=== PATIENT | male | born 1940 | race Caucasian/White ===

== ENCOUNTER 2022-11-22 02:13 | Inpatient (IN) | payer OTHER, MEDICARE ==
[2022-11-22] MEDS ORDERED: Nitroglycerin 0.4 MG TAB 1 EACH ONE ×2 (02:24→02:44)
[2022-11-22 02:47] LABS: #Basophils 0.1 thou/uL (0.0-0.2); #Eosinphils 0.2 thou/uL (0.0-0.7); #Monocytes 0.8 thou/uL (0.11-0.59); #Neutrophils 5.6 thou/uL (1.40-6.50); %Basophils 0.5 % (0.0-1.0); %Lymphocytes 28.5 % (21.0-51.0); %Monocytes 8.5 % (0.0-10.0); %Neutrophils 60.2 % (42.0-75.0); Hematocrit 41.1 % (42.0-52.0); Mean Corpuscular HGB CONC 34.1 g/dL (32.0-36.0); Mean Corpuscular Hemoglobin 29.9 pg (27.0-31.0); Mean Corpuscular Volume 87.6 fl (78.0-98.0); Mean Platelet Volume 9.3 fL (7.4-10.4); Platelet Count 201 10x3/uL (130-400); RBC Distribution Width 13.5 % (11.5-14.5); Red Blood Cell (RBC) Count 4.69 mill/uL (4.70-6.10); White Blood Cell (WBC) Count 9.2 10x3/uL (4.8-10.8)
[2022-11-22] MEDS ORDERED: Amiodarone 150 MG/3 ML VIAL ONE (02:53)
[2022-11-22] MEDS ORDERED: Nitroglycerin 2% Ointment 1 INCH/1 GM Packet ONE (03:03)
[2022-11-22 03:12] LABS: ALT (SGPT) 16 U/L (8-55); AST (SGOT) 22 U/L (5-34); Albumin 4.6 g/dL (3.4-4.8); Alkaline Phosphatase 69 U/L (40-110); Anion Gap 10 mmol/L (10-20); BUN (Urea Nitrogen) 21 mg/dL (8.4-25.7); Bilirubin, Total 0.4 mg/dL (0.2-1.2); Calc. Creatinine Clearance 0 mL/min (70-130); Calcium 9.6 mg/dL (7.8-10.44); Carbon Dioxide 28 mmol/L (23-31); Chloride 105 mmol/L (98-107); Estimated GFR 49; Globulin 2.4 g/dL (2.4-3.5); Glucose 136 mg/dL (83-110); Lipase 37 U/L (8-78); Sodium 139 mmol/L (136-145)
[2022-11-22 03:21] LABS: Troponin I Less than 0.010 ng/mL (< 0.028)
[2022-11-22] MEDS ORDERED: Aspirin Chewable 81 MG TAB ONE (04:06)
[2022-11-22] MEDS ORDERED: fentaNYL 50 mcg/mL 1 mL Vial ONE (04:06)
[2022-11-22] MEDS ORDERED: Nitroglycerin 50 MG/250 ML BOT 0 ML ONE (04:30)
[2022-11-22] MEDS ORDERED: Nitroglycerin 50 MG/250 ML BOT 250 ML ONE (04:31)
[2022-11-22 05:30] LABS: Troponin I Less than 0.010 ng/mL (< 0.028)
[2022-11-22] MEDS ORDERED: Ondansetron PF 4 MG/2 ML Vial IVP PRN (05:32)
[2022-11-22] MEDS ORDERED: Nitroglycerin 50 MG/250 ML BOT 250 ML IVPB SCH (06:00)
[2022-11-22 06:04] LABS: Cardiac Risk 3.8 (Less than 4.5)
[2022-11-22 06:12] VITALS: BMI 26.3
[2022-11-22] MEDS ORDERED: Sodium Chloride 0.9% 1,000 ML IV SCH (06:15)
[2022-11-22] MEDS ORDERED: Electrolyte Replacement Protocol 1 EACH FS PRN (06:24)
[2022-11-22 06:52] LABS: Hemoglobin A1c 5.2 % (4.0-6.0)
[2022-11-22] MEDS ORDERED: Amiodarone 450 MG in Dextrose 5% in Water 250 ML IVPB SCH (07:00)
[2022-11-22] MEDS ORDERED: Simethicone Chewable 80 MG TAB PO SCH (07:00)
[2022-11-22] MEDS ORDERED: Lidocaine 2% Viscous Solution 10 ML, Aluminum & Magnesium Hydroxide 30 ML SSW SCH (07:00)
[2022-11-22 08:14] LABS: Magnesium 2.1 mg/dL (1.6-2.6)
[2022-11-22] MEDS: Pantoprazole 40 MG VIAL IVP SCH (08:21)
[2022-11-22 08:38] LABS: Troponin I Less than 0.010 ng/mL (< 0.028)
[2022-11-22] MEDS ORDERED: FLU VACC QS2023(65UP)/MF59C/PF 60 MCG/0.5 ML SYRINGE IM ONE (09:00)
[2022-11-22] MEDS: Acetaminophen 325 MG TAB PO PRN ×3 (09:42→22:25)
[2022-11-22] MEDS: PHOS-NAK 1 PKT PACK PO SCH ×2 (09:42→13:37)
[2022-11-22] MEDS ORDERED: Iopamidol 370 76% 100 ML VIAL ONE (11:04)
[2022-11-22] MEDS ORDERED: Communication Order-Pharmacy FS SCH (14:45)
[2022-11-22] MEDS ORDERED: Atorvastatin Calcium 40 MG TAB PO SCH (21:00)
[2022-11-23] MEDS ORDERED: Sodium Chloride 0.9% 1,000 ML IV SCH (06:00)
[2022-11-23 07:00] LABS: #Eosinphils 0.2 thou/uL (0.0-0.7); #Neutrophils 5.2 thou/uL (1.40-6.50); %Basophils 0.4 % (0.0-1.0); %Eosinophils 1.8 % (0.0-10.0); %Lymphocytes 25.4 % (21.0-51.0); %Monocytes 11.1 % (0.0-10.0); %Neutrophils 60.9 % (42.0-75.0); Hematocrit 39.5 % (42.0-52.0); Hemoglobin 13.2 g/dL (14.0-18.0); Mean Corpuscular HGB CONC 33.4 g/dL (32.0-36.0); Mean Corpuscular Hemoglobin 29.7 pg (27.0-31.0); Mean Corpuscular Volume 88.8 fl (78.0-98.0); Mean Platelet Volume 9.4 fL (7.4-10.4); Platelet Count 184 10x3/uL (130-400); RBC Distribution Width 13.4 % (11.5-14.5); Red Blood Cell (RBC) Count 4.45 mill/uL (4.70-6.10); White Blood Cell (WBC) Count 8.5 10x3/uL (4.8-10.8)
[2022-11-23] MEDS ORDERED: Heparin 10,000 UNITS/ 10 ML VIAL ONE ×2 (07:04→09:51)
[2022-11-23] MEDS ORDERED: Verapamil 5 MG/2 ML VIAL ONE ×2 (07:04→09:51)
[2022-11-23] MEDS ORDERED: Midazolam HCl 2 mg/2 ml Vial ONE (07:04)
[2022-11-23] MEDS ORDERED: fentaNYL 50 mcg/mL 1 mL Vial ONE (07:04)
[2022-11-23] MEDS ORDERED: Lidocaine 1% (PF) 30 ML VIAL ONE (07:05)
[2022-11-23] MEDS ORDERED: Nitroglycerin 50 MG/250 ML BOT 0 ML ONE (07:05)
[2022-11-23 07:26] LABS: Anion Gap 11 mmol/L (10-20); BUN (Urea Nitrogen) 17 mg/dL (8.4-25.7); Calc. Creatinine Clearance 56 mL/min (70-130); Calcium 8.8 mg/dL (7.8-10.44); Carbon Dioxide 26 mmol/L (23-31); Chloride 106 mmol/L (98-107); Estimated GFR 53; Glucose 86 mg/dL (83-110); Potassium 4.2 mmol/L (3.5-5.1); Sodium 139 mmol/L (136-145)
[2022-11-23] MEDS ORDERED: Aspirin 81 mg Enteric Coated Tablet PO SCH (09:00)
[2022-11-23] MEDS: Pantoprazole 40 MG VIAL IVP SCH (09:44)
[2022-11-23] MEDS ORDERED: Lidocaine 1% PF 5 ML VIAL ONE (09:51)
[2022-11-23] MEDS ORDERED: Nitroglycerin 50 MG/250 ML BOT 250 ML ONE (09:51)
[2022-11-23] MEDS ORDERED: Atropine Sulfate 1 mg/10 ml Syringe ONE (10:31)
[2022-11-23] MEDS ORDERED: Acetaminophen/Codeine 30-300mg Tablet PO PRN (11:04)
[2022-11-23] MEDS ORDERED: Sodium Chloride 0.9% 200 ML IV PRN (11:04)
[2022-11-23] MEDS ORDERED: Sodium Chloride 0.9% 500 ML IV SCH (11:15)
[2022-11-23 12:38] VITALS: TEMP 99.1
== END 2022-11-23 16:20 | disposition home or self-care (01) | DRG 392 ==
LOC: ERS 02:13 → CCU 04:41
PROVIDERS: ADMIT Internal Medicine; ATTEND Internal Medicine
PROC: 4A023N7 Measurement of Cardiac Sampling and Pressure, Left Heart, Percutaneous Approach (ICD-10-PCS; principal; 2022-11-23)
PROC: B2111ZZ Fluoroscopy of Multiple Coronary Arteries using Low Osmolar Contrast (ICD-10-PCS; 2022-11-23)
PROC: B2151ZZ Fluoroscopy of Left Heart using Low Osmolar Contrast (ICD-10-PCS; 2022-11-23)
DX: K21.9 Gastro-esophageal reflux disease without esophagitis (principal); N17.9 Acute kidney failure, unspecified; M48.54XA Collapsed vertebra, not elsewhere classified, thoracic region, initial encounter for fracture; K29.70 Gastritis, unspecified, without bleeding; I10 Essential (primary) hypertension; E78.5 Hyperlipidemia, unspecified; Z98.890 Other specified postprocedural states; Z87.891 Personal history of nicotine dependence; Z88.0 Allergy status to penicillin; Z79.82 Long term (current) use of aspirin; Z79.899 Other long term (current) drug therapy
CPT/HCPCS: 36415; 71045; 71275; 74174; 80048; 80053; 80061; 83036; 83690; 83735; 84100; 84443; 84484; 85025; 90471; 90694; 93005; 93306; 93458; 94760; 99152; C1769; C1894; C9113; G0008; J0282; J0461; J1644; J1650; J2001; J2250; J3010; J7050; J7070; Q9967